=== PATIENT | female | born 1960 | race Two or more races ===

== ENCOUNTER 2025-10-13 11:23 | Emergency (ER) | payer OTHER, MEDICAID ==
[~2025-10-13] VITALS: Ht 170.2 cm; Wt 57.7 kg
--- NOTE | 2025-10-13 13:33 | ED.PDOC ---
Back pain HPI HPI Comments 65 y/o F, presents to the ED for CC of back pain. Patient states, she has been experiencing lower lumbar back pain with associated left-leg numbness onset x2days ago. Patient reports, pain to worsen with ambulation. Patient denies any trauma, injury, or fall. No other symptoms or modifying factors are present at this time. 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 Family History Family History: Unknown Social History Smoker: Non-Smoker Alcohol: Denies ETOH Use Drugs: Denies Drug Use Lives In: Home Constitutional: denies: chills, diaphoresis, fatigue, fever, malaise, sweats, weakness, others EENTM: denies: blurred vision, double vision, ear bleeding, ear discharge, ear drainage, ear pain, ear ringing, eye pain, eye redness, hearing loss, mouth p ain, mouth swelling, nasal discharge, nose bleeding, nose congestion, nose pain, photophobia, tearing, throat pain, throat swelling, voice changes, others Respiratory: denies: cough, hemoptysis, orthopnea, SOB at rest, shortness of br eath, SOB with excertion, stridor, wheezing, others Cardiovascular: denies: chest pain, dizzy spells, diaphoresis, Dyspnea on exertion, edema, irregular heart beat, left arm pain, lightheadedness, palpitations, PND, syncope, others Gastrointestinal: denies: abdomen distended, abdominal pain, blood streaked bowels, constipated, diarrhea, dysphagia, difficulty swallowing, hematemesis, melena, nausea, poor appetite, poor fluid intake, rectal bleeding, rectal pain, vomiting, others Genitourinary: denies: abnormal vagina bleeding, burning, dyspareunia, dysuria, flank pain, frequency, hematuria, incontinence, pain, , vagina discharge, urgency, others Neurological: denies: dizziness, fainting, headache, left sided numbness, left sided weakness, numbness, paresthesia, pre-existing deficit, right sided numbness, right sided weakness, seizure, speech problems, tingling, tremors, weakness, others Musculoskeletal: reports: back pain; denies: gout, joint pain, joint swelling, muscle pain, muscle stiffness, neck pain, others Integumetry: denies: bruises, change in color, change in hair/nails, dryness, laceration, lesions, lumps, rash, wounds, others Allergic/Immunocompromised: denies: Difficulty Healing, Frequent Infections, Hives, Itching, others Hematologic/Lymphatic: denies: anemia, blood clots, easy bleeding, easy bruis ing, swollen glands, others Endocrine: denies: excessive hunger, excessive sweating, excessive thirst, exc essive urination, flushing, intolerance to cold, intolerance to heat, unexplained weight gain, unexplained weight loss, others Psychiatric: denies: anxiety, bipolar disorder, depression, hopeless, panic disorder, schizophrenia, sleepless, suicidal, others All Other Systems: Reviewed and Negative Physical Exam General Appearance: Moderate Distress HEENT: Normal ENT Inspection, PERRL/EOMI Neck: Full Range of Motion, Non-Tender, Normal, Normal Inspection Respiratory: Chest Non-Tender, Lungs Clear, No Accessory Muscle Use, No Respiratory Distress, Normal Breath Sounds Cardiovascular: No Edema, No JVD, No Murmur, No Gallop, Normal Peripheral Pulses, Regular Rate/Rhythm Breast Exam: Deferred Gastrointestinal: No Organomegaly, Non Tender, No Pulsatile Mass, Normal Bowel Sounds, Soft Genitalia: Deferred Pelvic: Deferred Rectal: Deferred Extremities: No calf tenderness, Normal capillary refill, Normal inspection, Normal range of motion, Non-tender, No pedal edema, Other (Pain to the left leg going down below the knees with some numbness) Neurologic: Alert, Other (Radiculitis left leg) Cerebellar Function: Normal Reflexes: Normal Skin: Dry, Normal Color, Warm Peripheral Pulses: 1+ carotid (R), 1+ carotid (L) Lymphatic: No Adenopathy Was a procedure done? Was a procedure done?: No Back Pain Differential Dx Differential Diagnosis: DJD, Musculoskeletal Pain, Strain X-Ray, Labs, Meds, VS Vital Signs Date Time Temp Pulse Resp B/P (MAP) Pulse Ox O2 Delivery O2 Flow Rate FiO2 10/13/25 13:13 97.5 54 17 156/74 (101) 97 97.5 10/13/25 11:31 97.4 64 18 164/74 98 97.4 Current Medications Medications (Trade) Dose Ordered Sig/Miah Route Start Time Stop Time Status Last Admin Ketorolac Tromethamine (Toradol Injection) 60 mg ONCE ONCE IM 10/13/25 13:45 10/13/25 13:47 DC 10/13/25 13:56 [place] [address] Ph: [phone] DIAGNOSTIC IMAGING Diagnostic Imaging Report : [id number] Signed PATIENT: JANNIE SANCHEZ ACCT: [id number] UNIT: [id number] : 1960 LOC: ER ROOM / BED: / AGE / SEX: 65 / F ADM STATUS: REG ER SERVICE 1344 ORDERING PHYSICIAN: LIDIA CALDERON MD PROCEDURE(s): LS2CT - LS SPINE WO CONTRAST REASON: Radiculitis left leg ORDER NUMBER(s): [id number], ACCESSION NUMBER(s): [id number] EXAM: CT LS SPINE WO CONTRAST HISTORY: Radiculitis left leg COMPARISON: None CTDIvol 9.2 mGy, DLP 296.53 mGy*cm. TECHNIQUE: Multiple axial CT images of the spine were obtained using bone algorithm. Axial and coronal reformatting was done. Bone and soft tissue windows were reviewed. FINDINGS: Crq-pcl-xbakuyh lumbar-type vertebrae. Normal alignment of the lumbar spine. The vertebral body heights are maintained. No evidence of acute traumatic fractures or spondylolisthesis. T12-L1: No significant spinal canal or neural foramina stenosis. L1-L2: Minimal posterior disc bulge without significant spinal canal stenosis. Mild Left-sided neural foramina stenosis. L2-L3: Minimal posterior disc bulge without significant spinal canal stenosis. Mild bilateral neural foramina stenosis. L3-L4: Minimal posterior disc bulge without significant spinal canal stenosis. Kcrv-th-aehoflkl right with mild Left-sided neural foramina stenosis. L4-L5: Posterior disc bulge with ligamentum flavum hypertrophy causing moderate spinal canal stenosis with fgyh-rg-rapugius bilateral neural foramina stenosis. L5-S1: Mild posterior disc bulge with ligamentum flavum hypertrophy causing mild spinal canal stenosis with moderate left and Mild right-sided neural foramina stenosis. The paraspinal muscles unremarkable. Partially imaged njsq-th-jfjxpoifie distended Urinary bladder. Cholelithiasis with incomplete evaluation of the gallbladder. 1.6 cm left adrenal myelolipoma. IMPRESSION: No evidence of acute traumatic fractures or spondylolisthesis. Moderate degenerative changes at L4-L5. Otherwise, multilevel qmin-tk-yegrgsyv degenerative changes of the lumbar spine. MRI is recommended for further evaluation. ATED BY: RIDDHI ARRIETA DO DICTATED DATE/TIME: 10/13/251437 SIGNED BY: RIDDHI ARRIETA DO SIGNED DATE/TIME: 10/13/251437 CC: X-Ray, Labs, Meds, VS Comment Course in the fast track eventful CT LS SPINE SHOWING EGD L4-L5 MULTILEVEL DJD NO FRACTURE PATIENT WE WILL BE DISCHARGED HOME Time of 1ST Reevaluation: 13:30 Reevaluation 1ST: Unchanged Time of 2ND Reevaluation: 14:54 Reevaluation 2ND: Improved Consultation: PCP Patient Education/Counseling: Diagnosis, Treatment, Prognosis, Need For Follow Up Family Education/Counseling: Diagnosis, Treatment, Prognosis, Need For Follow Up, No Family Present SEPSIS Sepsis Screen Date sepsis recognized/suspect: Oct 13, 2025 Time Sepsis recognized/suspect: 1132 Recent Procedure: No On Antibiotic Therapy: No Respiratory Rate >20: No Heart Rate >90: No Temp<36 C (96.8 F) or >38.3 C: No SBP <90 or MAP <65 mmHG: No New Acute Mental Status Change: No Is the patient on CPAP, BIPAP,: No Physician Orders Ls Spine Wo Contrast (10/13/25 13:44) Vital Signs Date Time Temp Pulse Resp B/P (MAP) Pulse Ox O2 Delivery O2 Flow Rate FiO2 10/13/25 13:13 97.5 54 17 156/74 (101) 97 97.5 10/13/25 11:31 97.4 64 18 164/74 98 97.4 Medications Medications Dose Ordered Sig/Miah Route Start Time Stop Time Status Last Admin Dose Admin Ketorolac Tromethamine 60 mg ONCE ONCE IM 10/13/25 13:45 10/13/25 13:47 DC 10/13/25 13:56 Departure 1 Departure Time of Disposition: 14:54 Impression: Primary Impression: 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 Disposition: HOME / SELF CARE / HOMELESS Condition: Fair Additional Instructions: LOCALLY HEAT BEDREST AND FOLLOW UP WITH YOUR PCP e-Prescriptions Prednisone (Prednisone) 20 Mg Tab 20 MG PO BID for 5 Days, #10 MG Prov: LIDIA CALDERON MD 10/13/25 Cyclobenzaprine Hcl (Cyclobenzaprine Hcl) 10 Mg Tab 10 MG PO TID for 10 Days, #30 TAB Prov: LIDIA CALDERON MD 10/13/25 Discharged With: Self Critical Care Note Critical Care Time?: No Stability Stability form required: No Heart Score Heart Score: Heart Score Response (Comments) Value History N/A 0 EKG N/A 0 Age >65 2 Risk Factors No known risk factors 0 Troponin N/A 0 Total 2 I personally scribed for LIDIA CALDERON MD ([email or web address]) on 10/13/25 at 13:33. Electronically submitted by Kiera Quinn ([email or web address]). I personally scribed for LIDIA CALDERON MD ([email or web address]) on 10/13/25 at 14:48. Electronically submitted by Kiera Quinn ([email or web address]). LIDIA CALDERON MD Oct 13, 2025 13:33
[2025-10-13] MEDS: KETOROLAC TROMETH 60MG/2ML VIAL IM ONE (13:56)
--- NOTE | 2025-10-13 14:41 | DVH ---
EXAM: CT LS SPINE WO CONTRAST HISTORY: Radiculitis left leg COMPARISON: None CTDIvol 9.2 mGy, DLP 296.53 mGy*cm. TECHNIQUE: Multiple axial CT images of the spine were obtained using bone algorithm. Axial and coronal reformatting was done. Bone and soft tissue windows were reviewed. FINDINGS: Xmu-mmn-diaagyc lumbar-type vertebrae. Normal alignment of the lumbar spine. The vertebral body heights are maintained. No evidence of acute traumatic fractures or spondylolisthesis. T12-L1: No significant spinal canal or neural foramina stenosis. L1-L2: Minimal posterior disc bulge without significant spinal canal stenosis. Mild Left-sided neural foramina stenosis. L2-L3: Minimal posterior disc bulge without significant spinal canal stenosis. Mild bilateral neural foramina stenosis. L3-L4: Minimal posterior disc bulge without significant spinal canal stenosis. Brwg-ih-vlctzccu right with mild Left-sided neural foramina stenosis. L4-L5: Posterior disc bulge with ligamentum flavum hypertrophy causing moderate spinal canal stenosis with mavz-tm-plkdaqip bilateral neural foramina stenosis. L5-S1: Mild posterior disc bulge with ligamentum flavum hypertrophy causing mild spinal canal stenosis with moderate left and Mild right-sided neural foramina stenosis. The paraspinal muscles unremarkable. Partially imaged kgai-ug-vjehkkcaio distended Urinary bladder. Cholelithiasis with incomplete evaluation of the gallbladder. 1.6 cm left adrenal myelolipoma. IMPRESSION: No evidence of acute traumatic fractures or spondylolisthesis. Moderate degenerative changes at L4-L5. Otherwise, multilevel suhi-km-blosarcn degenerative changes of the lumbar spine. MRI is recommended for further evaluation.
[2025-10-13 14:54] VITALS: BP 155/77; PULSE 58; RESP 18; TEMP 97.8; O2SAT 100
[2025-10-13] MEDS ORDERED: CYCL-839 PO (14:59)
[2025-10-13] MEDS ORDERED: PRED20TA2 PO (14:59)
== END 2025-10-13 15:12 | disposition home or self-care (01) ==
LOC: ER 11:23
DX: M51.16 Intervertebral disc disorders with radiculopathy, lumbar region (principal)
CPT/HCPCS: 72131; 96372; 99285; J1885